=== PATIENT | male | born 1965 | race Caucasian/White ===

== ENCOUNTER 2017-02-20 08:28 | Inpatient (IN) | payer OTHER ==
[2017-02-20 10:23] VITALS: BMI 23.0
--- NOTE | 2017-02-20 12:01 | HP ---
CIWA Score - CIWA Score Nausea/Vomitin-Mild Nausea/No Vomiting Muscle Tremors: 4-Moderate,w/Arms Extend Anxiety: 4-Mod. Anxious/Guarded Agitation: 3 Paroxysmal Sweats: 3 Orientation: 0-Oriented Tacttile Disturbances: 1-Very Mild Itch/Numbness Auditory Disturbances: 0-None Visual Disturbances: 0-None Headache: 2-Mild CIWA-Ar Total Score: 18 Admission ROS BHS - HPI Chief Complaint: Withdrawal sx Allergies/Adverse Reactions: Allergies Allergy/AdvReac Type Severity Reaction Status Date / Time No Known Allergies Allergy Verified 02/20/17 10:23 History of Present Illness: 51 y/o man with a long hx. of alcoholism is admitted for detox.Pt. has been in previous detox,denies significant sobriety. Exam Limitations: No Limitations - Ebola screening Have you traveled outside of the country in the last 21 days: No Have you had contact with anyone from an Ebola affected area: No Have you been sick,other than usual withdrawal symptoms: No Do you have a fever: No - Review of Systems Constitutional: Diaphoresis EENT: reports: No Symptoms Reported Respiratory: reports: No Symptoms reported Cardiac: reports: No Symptoms Reported GI: reports: Nausea, Abdominal cramping : reports: No Symptoms Reported Musculoskeletal: reports: Joint Pain Integumentary: reports: Sweating Neuro: reports: Headache, Tingling, Tremors, Other (frequent blackouts) Endocrine: reports: No Symptoms Reported Hematology: reports: No Symptoms Reported Psychiatric: reports: No Sypmtoms Reported Other Systems: Reviewed and Negative Patient History - Patient Medical History Hx Anemia: No Hx Asthma: No Hx Chronic Obstructive Pulmonary Disease (COPD): No Hx Cancer: No Hx Cardiac Disorders: No Hx Congestive Heart Failure: No Hx Hypertension: No Hx Hypercholesterolemia: No Hx Seizures: No Hx Diabetes: No Hx Gastrointestinal Disorders: No Hx Liver Disease: Yes Hx Genitourinary Disorders: No Hx Sexually Transmitted Disorders: No Hx Renal Disease (ESRD): No Hx Thyroid Disease: No Hx Human Immunodeficiency Virus (HIV): No Hx Hepatitis C: Yes (non-compliant with F/U for tx.) Hx Depression: No Hx Suicide Attempt: No Hx Bipolar Disorder: No Hx Schizophrenia: No - Patient Surgical History Past Surgical History: Yes Hx Neurologic Surgery: No Hx Cataract Extraction: No Hx Cardiac Surgery: No Hx Lung Surgery: No Hx Breast Surgery: No Hx Breast Biopsy: No Hx Abdominal Surgery: No Hx Appendectomy: No Hx Cholecystectomy: No Hx Genitourinary Surgery: No Hx Section: Yes (fx, right hand) Hx Orthopedic Surgery: No Anesthesia Reaction: No - PPD History Previous Implant?: Yes Documented Results: Negative w/o proof Implanted On Prior [facility] Admission?: No PPD to be Administered?: Yes - Smoking Cessation Smoking history: Current some day smoker Have you smoked in the past 12 months: Yes Aproximately how many cigarettes per day: 2 Hx Chewing Tobacco Use: No Initiated information on smoking cessation: Yes 'Breaking Loose' booklet given: 02/20/17 - Substance & Tx. History Hx Alcohol Use: Yes Hx Substance Use: Yes Substance Use Type: Alcohol, Cocaine Hx Substance Use Treatment: Yes (Detox, last time in 2002 at [facility]) - Substances Abused Cocaine Route: Inhalation Frequency: Daily Amount used: $100 Age of first use: 13 Date of Last Use: 02/19/17 Alcohol-beer/rum Route: Oral Frequency: Daily Amount used: 3-6 pks./2 pts. Age of first use: 7 Date of Last Use: 02/19/17 Marijuana Route: Smoking Frequency: 1-2 times per week Amount used: $5-10 Age of first use: 11 Date of Last Use: 02/19/17 Family Disease History - Family Disease History Family Disease History: Diabetes: Mother (Alcoholic), Heart Disease: Grandparent (HTN,CVA), Other: Grandparent, Mother Admission Physical Exam S - Vital Signs Vital Signs: Vital Signs - 24 hr 02/20/17 10:19 Temperature 97.4 F L Pulse Rate 52 L Respiratory 18 Rate Blood Pressure 104/66 - Physical General Appearance: Yes: Sweating, Anxious HEENTM: Yes: Within Normal Limits Respiratory: Yes: Chest Non-Tender, Lungs Clear, Normal Breath Sounds Neck: Yes: Supple Breast: Yes: Breast Exam Deferred Cardiology: Yes: Regular Rhythm, Regular Rate, S1, S2 Abdominal: Yes: Normal Bowel Sounds, Non Tender, Soft Genitourinary: Yes: Within Normal Limits Back: Yes: Within Normal Limits Musculoskeletal: Yes: Within Normal Limits Extremities: Yes: Tremors Neurological: Yes: Fully Oriented, Alert Integumentary: Yes: Diaphoresis Lymphatic: Yes: Within Normal Limits - Diagnostic (1) Alcohol dependence with uncomplicated withdrawal Current Visit: Yes Status: Acute (2) Cocaine dependence, uncomplicated Current Visit: Yes Status: Acute Cleared for Admission [facility] - Detox or Rehab [facility] Level of Care: Medically Managed Detox Regimen/Protocol: Librium [facility] Breath Alcohol Content Breath Alcohol Content: 0 Urine Drug Screen - Results Drug Screen Negative: No Urine Drug Screen Results: THC-Marijuana, IRWIN-Cocaine, BZO-Benzodiazepines
[2017-02-20] MEDS ORDERED: ACETAMINOPHEN 325 MG TABLET (FP) PO PRN (12:09)
[2017-02-20] MEDS ORDERED: MAGNESIUM CITRATE 300 ML BOTTLE PO PRN (12:09)
[2017-02-20] MEDS ORDERED: IBUPROFEN 400 MG TABLET (FP) PO PRN (12:09)
[2017-02-20] MEDS ORDERED: LOPERAMIDE HCL 2 MG CAPSULE PO PRN (12:09)
[2017-02-20] MEDS ORDERED: MAGNESIUM HYDROX 2400MG/30ML ORAL SUSPENSION 30 ML CUP PO PRN (12:09)
[2017-02-20] MEDS ORDERED: chlordiazePOXIDE HCL 25 MG CAPSULE PO PRN (12:09)
[2017-02-20] MEDS ORDERED: MENTHOL/PHENOL 1 EACH UD MM PRN (12:09)
[2017-02-20] MEDS ORDERED: MAG HYDROX/AL HYDROX/SIMETH 30 ML UNIT-DOSE CUP PO PRN (12:09)
[2017-02-20] MEDS ORDERED: guaiFENesin/D-METHORPHAN HB 10 ML UNIT-DOSE CUPS PO PRN (12:09)
[2017-02-20] MEDS ORDERED: NICOTINE POLACRILEX 2 MG GUM BC PRN (12:09)
[2017-02-20] MEDS ORDERED: P-EPHED 60MG/TRIPROLIDI 2.5MG TABLET PO PRN (12:09)
[2017-02-20] MEDS ORDERED: chlordiazePOXIDE HCL 25 MG CAPSULE PO ONE (14:00)
[2017-02-20] MEDS: NICOTINE 7 MG/24 HOURS TOPICAL PATCH TD SCH (15:01)
[2017-02-20 17:18] LABS: URINE APPEARANCE CLEAR; URINE BILIRUBIN NEGATIVE (NEGATIVE); URINE BLOOD NEGATIVE (NEGATIVE); URINE COLOR YELLOW; URINE GLUCOSE (UA) NEGATIVE (NEGATIVE); URINE KETONE NEGATIVE (NEGATIVE); URINE LEUK ESTERASE NEGATIVE (NEGATIVE); URINE NITRITE NEGATIVE (NEGATIVE); URINE PROTEIN NEGATIVE (NEGATIVE); URINE UROBILINOGEN 2.0 E.U/dl E.U./dl (0.2-1.0)
[2017-02-20] MEDS: chlordiazePOXIDE HCL 25 MG CAPSULE PO SCH ×2 (17:32→22:28)
[2017-02-20] MEDS: THIAMINE HCL 100 MG TABLET (FP) PO SCH (22:28)
[2017-02-20] MEDS: diphenhydrAMINE HCL 50 MG CAPSULE PO PRN (22:29)
[2017-02-21] MEDS: chlordiazePOXIDE HCL 25 MG CAPSULE PO SCH ×4 (05:59→22:17)
[2017-02-21] MEDS: PRENATAL VITAMINS W/ FOLIC ACID TABLET (FP) PO SCH (10:05)
[2017-02-21] MEDS: NICOTINE 7 MG/24 HOURS TOPICAL PATCH TD SCH (10:05)
[2017-02-21 10:08] LABS: MCH 28.7 pg (25.7-33.7); MCHC 31.7 g/dl (32.0-35.9); MEAN CELL VOLUME 90.3 fl (80-96); MEAN PLT VOLUME 10.9 fl (7.5-11.1); PLATELET COUNT 168 K/MM3 (134-434); RDW 13.5 % (11.9-15.9); WHITE BLOOD COUNT 7.3 K/mm3 (4.0-10.0)
[2017-02-21 10:37] LABS: ALBUMIN 4.2 g/dl (3.4-5.0); ALK PHOS 94 U/L (45-117); ANION GAP 8 (8-16); BILIRUBIN,TOTAL 1.1 mg/dL (0.2-1.0); CALCIUM 9.2 mg/dL (8.5-10.1); CO2 32 mmol/L (21-32); COCKROFT - GAULT 85.5; GLUCOSE,RANDOM 173 mg/dL (74-106); SGOT/AST 42 U/L (15-37); SGPT/ALT 58 U/L (12-78); TOT PROT 7.8 g/dl (6.4-8.2)
[2017-02-21 14:14] LABS: HIV 1 & 2 AB NEGATIVE; HIV 1 AGp24 NEGATIVE
--- NOTE | 2017-02-21 15:47 | EKG ---
Test Reason : Blood Pressure : / mmHG Vent. Rate : 059 BPM Atrial Rate : 059 BPM P-R Int : 144 ms QRS Dur : 088 ms QT Int : 468 ms P-R-T Axes : 077 056 049 degrees QTc Int : 463 ms SINUS BRADYCARDIA POSSIBLE LEFT ATRIAL ENLARGEMENT BORDERLINE ECG NO PREVIOUS ECGS AVAILABLE Confirmed by NAOMI GUTIERREZ, AMANDA ([id number]) on 02/21/2017 3:47:34 PM Referred By: Ilir Jaeger Confirmed By:AMANDA SALGADO MD
--- NOTE | 2017-02-21 18:54 | PN ---
[facility] CIWA - CIWA Score Nausea/Vomitin-No Nausea/No Vomiting Muscle Tremors: 4-Moderate,w/Arms Extend Anxiety: 3 Agitation: 2 Paroxysmal Sweats: 2 Orientation: 0-Oriented Tacttile Disturbances: 0-None Auditory Disturbances: 2-Mild Harshness/Frighten Visual Disturbances: 3-Moderate Sensitivity Headache: 0-None Present CIWA-Ar Total Score: 16 S Progress Note (SOAP) Subjective: Fatigue, Sweating, Tremors. Objective: PT. A & O X 3. NO ACUTE DISTRESS. 02/21/17 18:53 Vital Signs Temperature 97.7 F 02/21/17 17:38 Pulse Rate 60 02/21/17 17:38 Respiratory Rate 18 02/21/17 17:38 Blood Pressure 106/63 02/21/17 17:38 O2 Sat by Pulse Oximetry (%) Laboratory Tests 02/20/17 02/21/17 02/21/17 15:00 06:00 06:00 WBC 7.3 RBC 4.62 Hgb 13.3 Hct 41.8 MCV 90.3 MCHC 31.7 L RDW 13.5 Plt Count 168 MPV 10.9 Sodium 142 Potassium 4.3 Chloride 102 Carbon Dioxide 32 Anion Gap 8 BUN 16 Creatinine 1.0 Creat Clearance w eGFR > 60 Random Glucose 173 H Calcium 9.2 Total Bilirubin 1.1 H AST 42 H ALT 58 Alkaline Phosphatase 94 Total Protein 7.8 Albumin 4.2 Urine Color Yellow Urine Appearance Clear Urine pH 6.0 Ur Specific Ralph 1.020 Urine Protein Negative Urine Glucose (UA) Negative Urine Ketones Negative Urine Blood Negative Urine Nitrite Negative Urine Bilirubin Negative Urine Urobilinogen 2.0 e.u/dl Ur Leukocyte Esterase Negative RPR Titer HIV 1&2 Antibody Screen HIV P24 Antigen 02/21/17 02/21/17 06:00 08:00 WBC RBC Hgb Hct MCV MCHC RDW Plt Count MPV Sodium Potassium Chloride Carbon Dioxide Anion Gap BUN Creatinine Creat Clearance w eGFR Random Glucose Calcium Total Bilirubin AST ALT Alkaline Phosphatase Total Protein Albumin Urine Color Urine Appearance Urine pH Ur Specific Ralph Urine Protein Urine Glucose (UA) Urine Ketones Urine Blood Urine Nitrite Urine Bilirubin Urine Urobilinogen Ur Leukocyte Esterase RPR Titer Nonreactive HIV 1&2 Antibody Screen Negative HIV P24 Antigen Negative LABS NOTED. Assessment: 02/21/17 18:53 WITHDRAWAL SYMPTOMS. Plan: CONTINUE DETOX. BGM [facility] TOMORROW AM FOR ELEVATED ADMISSION RANDOM GLUCOSE LEVEL.
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
[2017-02-21] MEDS: diphenhydrAMINE HCL 50 MG CAPSULE PO PRN (22:17)
[2017-02-21] MEDS: THIAMINE HCL 100 MG TABLET (FP) PO SCH (22:17)
[2017-02-22] MEDS: chlordiazePOXIDE HCL 25 MG CAPSULE PO SCH ×2 (05:45→10:42)
[2017-02-22] MEDS: NICOTINE 7 MG/24 HOURS TOPICAL PATCH TD SCH (10:41)
[2017-02-22] MEDS: PRENATAL VITAMINS W/ FOLIC ACID TABLET (FP) PO SCH (10:42)
--- NOTE | 2017-02-22 11:15 | PN ---
S CIWA - CIWA Score Nausea/Vomitin Muscle Tremors: 3 Anxiety: 3 Agitation: 3 Paroxysmal Sweats: 1-Minimal Palms Moist Orientation: 0-Oriented Tacttile Disturbances: 1-Very Mild Itch/Numbness Auditory Disturbances: 1-Very Mild Visual Disturbances: 1-Very Mild Sensitivity Headache: 2-Mild CIWA-Ar Total Score: 18 S Progress Note (SOAP) Subjective: ALERT,IRRITABLE,ANXIOUS,INTERRUPTED SLEEP,TREMOR,PAIN IN THE BODY Objective: 02/22/17 11:12 Vital Signs Temperature 97.7 F 02/22/17 10:45 Pulse Rate 55 L 02/22/17 10:45 Respiratory Rate 16 02/22/17 10:45 Blood Pressure 123/68 02/22/17 10:45 O2 Sat by Pulse Oximetry (%) EKG SINUS BRADYCARDIA 59/MIN NO CHEST PAIN,NO SOB,NO DIZZINESS Laboratory Last Values WBC 7.3 K/mm3 (4.0-10.0) 02/21/17 06:00 RBC 4.62 M/mm3 (4.00-5.60) 02/21/17 06:00 Hgb 13.3 GM/dL (11.7-16.9) 02/21/17 06:00 Hct 41.8 % (35.4-49) 02/21/17 06:00 MCV 90.3 fl (80-96) 02/21/17 06:00 MCHC 31.7 g/dl (32.0-35.9) L 02/21/17 06:00 RDW 13.5 % (11.9-15.9) 02/21/17 06:00 Plt Count 168 K/MM3 (134-434) 02/21/17 06:00 MPV 10.9 fl (7.5-11.1) 02/21/17 06:00 Sodium 142 mmol/L (136-145) 02/21/17 06:00 Potassium 4.3 mmol/L (3.5-5.1) 02/21/17 06:00 Chloride 102 mmol/L (98-107) 02/21/17 06:00 Carbon Dioxide 32 mmol/L (21-32) 02/21/17 06:00 Anion Gap 8 (8-16) 02/21/17 06:00 BUN 16 mg/dL (7-18) 02/21/17 06:00 Creatinine 1.0 mg/dL (0.7-1.3) 02/21/17 06:00 Creat Clearance w eGFR > 60 (>60) 02/21/17 06:00 POC Glucometer 124 UNITS (()) 02/22/17 06:15 Random Glucose 173 mg/dL (74-106) H 02/21/17 06:00 Calcium 9.2 mg/dL (8.5-10.1) 02/21/17 06:00 Total Bilirubin 1.1 mg/dL (0.2-1.0) H 02/21/17 06:00 AST 42 U/L (15-37) H 02/21/17 06:00 ALT 58 U/L (12-78) 02/21/17 06:00 Alkaline Phosphatase 94 U/L (45-117) 02/21/17 06:00 Total Protein 7.8 g/dl (6.4-8.2) 02/21/17 06:00 Albumin 4.2 g/dl (3.4-5.0) 02/21/17 06:00 Urine Color Yellow 02/20/17 15:00 Urine Appearance Clear 02/20/17 15:00 Urine pH 6.0 (5.0-8.0) 02/20/17 15:00 Ur Specific [place] 1.020 (1.005-1.025) 02/20/17 15:00 Urine Protein Negative (NEGATIVE) 02/20/17 15:00 Urine Glucose (UA) Negative (NEGATIVE) 02/20/17 15:00 Urine Ketones Negative (NEGATIVE) 02/20/17 15:00 Urine Blood Negative (NEGATIVE) 02/20/17 15:00 Urine Nitrite Negative (NEGATIVE) 02/20/17 15:00 Urine Bilirubin Negative (NEGATIVE) 02/20/17 15:00 Urine Urobilinogen 2.0 e.u/dl E.U./dl (0.2-1.0) 02/20/17 15:00 Ur Leukocyte Esterase Negative (NEGATIVE) 02/20/17 15:00 RPR Titer Nonreactive (NONREACTIVE) 02/21/17 06:00 HIV 1&2 Antibody Screen Negative 02/21/17 08:00 HIV P24 Antigen Negative 02/21/17 08:00 Assessment: 02/22/17 11:14 WITHDRAWAL SYMPTOM Plan: CONTINUE DETOX,BGM MONITORING
[2017-02-22] MEDS: chlordiazePOXIDE 5 MG CAPSULE PO SCH ×2 (17:34→22:08)
[2017-02-22] MEDS: THIAMINE HCL 100 MG TABLET (FP) PO SCH (22:07)
[2017-02-22] MEDS: diphenhydrAMINE HCL 50 MG CAPSULE PO PRN (22:07)
[2017-02-23] MEDS: chlordiazePOXIDE 5 MG CAPSULE PO SCH ×2 (05:32→10:12)
--- NOTE | 2017-02-23 10:10 | PN ---
B[facility] Progress Note (SOAP) Subjective: feeling much better very little sweats Objective: 02/23/17 10:10 Vital Signs Temperature 97.9 F 02/23/17 09:59 Pulse Rate 60 02/23/17 09:59 Respiratory Rate 18 02/23/17 09:59 Blood Pressure 131/60 02/23/17 09:59 O2 Sat by Pulse Oximetry (%) awake/alert ambulating no acute distress Assessment: 02/23/17 10:10 mild withdrawal sx Plan: continue detox increase fluids d/c in am
[2017-02-23] MEDS: NICOTINE 7 MG/24 HOURS TOPICAL PATCH TD SCH (10:12)
[2017-02-23] MEDS: PRENATAL VITAMINS W/ FOLIC ACID TABLET (FP) PO SCH (10:12)
[2017-02-23] MEDS: chlordiazePOXIDE HCL 10 MG CAPSULE PO SCH ×2 (17:30→22:11)
[2017-02-23] MEDS: diphenhydrAMINE HCL 50 MG CAPSULE PO PRN (22:11)
[2017-02-23] MEDS: THIAMINE HCL 100 MG TABLET (FP) PO SCH (22:11)
[2017-02-24] MEDS: chlordiazePOXIDE HCL 10 MG CAPSULE PO SCH ×2 (05:49→10:09)
--- NOTE | 2017-02-24 09:03 | DS ---
[facility] Detox Discharge Summary Admission Date: 02/20/17 Discharge Date: 02/24/17 - History Present History: Alcohol Dependence, Cocaine Dependence - Physical Exam Results Vital Signs: Vital Signs Temperature 96.8 F L 02/24/17 06:00 Pulse Rate 58 L 02/24/17 06:00 Respiratory Rate 18 02/24/17 06:00 Blood Pressure 127/60 02/24/17 06:00 O2 Sat by Pulse Oximetry (%) - Treatment Hospital Course: Detox Protocol Followed, Detoxed Safely, Responded well, Discharged Condition Good, Rehab Referral Accepted - Medication Discharge Medications: Ambulatory Orders NK [No Known Home Medication] 02/20/17 - Diagnosis (1) Alcohol dependence with uncomplicated withdrawal Current Visit: Yes Status: Chronic (2) Cocaine dependence, uncomplicated Current Visit: Yes Status: Chronic - AMA Did Patient Leave Against Medical Advice: No
[2017-02-24 09:48] VITALS: BP 100/61; PULSE 70; TEMP 98.2
[2017-02-24] MEDS: PRENATAL VITAMINS W/ FOLIC ACID TABLET (FP) PO SCH (10:09)
[2017-02-24] MEDS: NICOTINE 7 MG/24 HOURS TOPICAL PATCH TD SCH (10:09)
== END 2017-02-24 12:12 | disposition other institution (70) | DRG 774 ==
LOC: YASAS 08:28 → Y3N 13:15 → Y6N 02-21 21:18
PROVIDERS: ADMIT Internal Medicine; ATTEND Internal Medicine
PROC: HZ2ZZZZ Detoxification Services for Substance Abuse Treatment (ICD-10-PCS; principal; 2017-02-20)
DX: F10.230 Alcohol dependence with withdrawal, uncomplicated (principal); F14.20 Cocaine dependence, uncomplicated; R00.1 Bradycardia, unspecified; B18.2 Chronic viral hepatitis C; Z91.14 Patient's other noncompliance with medication regimen; Z72.0 Tobacco use
CPT/HCPCS: 36415; 80053; 81003; 85027; 86593; 87389; 93005; 93010

== ENCOUNTER 2017-02-24 12:26 | Inpatient (IN) | payer OTHER ==
[2017-02-24 12:40] VITALS: PULSE 60
[2017-02-24] MEDS ORDERED: MAGNESIUM CITRATE 300 ML BOTTLE PO PRN (15:57)
[2017-02-24] MEDS ORDERED: MAG HYDROX/AL HYDROX/SIMETH 30 ML UNIT-DOSE CUP PO PRN (15:57)
[2017-02-24] MEDS ORDERED: IBUPROFEN 400 MG TABLET (FP) PO PRN (15:57)
[2017-02-24] MEDS ORDERED: hydrOXYzine PAMOATE 50 MG CAPSULE (FP) PO PRN (15:57)
[2017-02-24] MEDS ORDERED: guaiFENesin/D-METHORPHAN HB 10 ML UNIT-DOSE CUPS PO PRN (15:57)
[2017-02-24] MEDS ORDERED: ACETAMINOPHEN 325 MG TABLET (FP) PO PRN (15:57)
[2017-02-24] MEDS ORDERED: MAGNESIUM HYDROX 2400MG/30ML ORAL SUSPENSION 30 ML CUP PO PRN (15:57)
[2017-02-24] MEDS ORDERED: MENTHOL/PHENOL 1 EACH UD MM PRN (15:57)
[2017-02-24] MEDS ORDERED: LOPERAMIDE HCL 2 MG CAPSULE PO PRN (15:57)
[2017-02-24] MEDS ORDERED: P-EPHED 60MG/TRIPROLIDI 2.5MG TABLET PO PRN (15:57)
[2017-02-24] MEDS ORDERED: diphenhydrAMINE HCL 50 MG CAPSULE PO PRN (15:57)
--- NOTE | 2017-02-24 16:24 | HP ---
LACIE GUTIERREZ Rehab Assess/Revision - Admission History Admitted to Rehab from: [facility] Date of Admission to Rehab: 02/24/17 - Vital signs Vital Signs: Vital Signs Period Temp Pulse Resp BP Sys/Curran Pulse Ox Last 24 Hr 98.2 F 60 18 113/62 - Findings Detox History & Physical reviewed: Yes Concur with findings: Yes Comments/Additional Findings: transferred from detox to rehab admission as per protocol
[2017-02-24] MEDS ORDERED: THIAMINE HCL 100 MG TABLET (FP) PO SCH (22:00)
[2017-02-25 06:49] VITALS: BP 113/65; TEMP 98.3
[2017-02-25] MEDS ORDERED: PRENATAL VITAMINS W/ FOLIC ACID TABLET (FP) PO SCH (10:00)
--- NOTE | 2017-02-25 12:22 | PN ---
S Progress Note Note: Patient signed out AMA today, prior to be seen for admission interview. Patient is stable , please see medical staff notes.
== END 2017-02-25 11:35 | disposition left against medical advice (07) | DRG 770 ==
LOC: YASAS 12:26 → Y5N 12:27
PROVIDERS: ADMIT Psychiatry & Neurology Psychiatry; ATTEND Psychiatry & Neurology Psychiatry
PROC: HZ42ZZZ Group Counseling for Substance Abuse Treatment, Cognitive-Behavioral (ICD-10-PCS; principal; 2017-02-24)
DX: F10.20 Alcohol dependence, uncomplicated (principal); F14.20 Cocaine dependence, uncomplicated; Z72.0 Tobacco use; B18.2 Chronic viral hepatitis C; Z91.19 Patient's noncompliance with other medical treatment and regimen; Z59.0 Homelessness

== ENCOUNTER 2017-11-17 09:25 | Inpatient (IN) | payer OTHER ==
[2017-11-17 11:19] VITALS: BMI 22.1
--- NOTE | 2017-11-17 12:25 | HP ---
CIWA Score - CIWA Score Nausea/Vomitin Muscle Tremors: 3 Anxiety: 3 Agitation: 3 Paroxysmal Sweats: 2 Orientation: 0-Oriented Tacttile Disturbances: 2-Mild Itch/Numbness/Burn Auditory Disturbances: 2-Mild Harshness/Frighten Visual Disturbances: 1-Very Mild Sensitivity Headache: 2-Mild CIWA-Ar Total Score: 21 Admission ROS BHS - HPI Chief Complaint: I NEED HELP TO STOP DRINKING ALCOHOL AND COCAINE Allergies/Adverse Reactions: Allergies Allergy/AdvReac Type Severity Reaction Status Date / Time Penicillins Allergy Difficulty Verified 11/17/17 11:51 Breathing History of Present Illness: THIS 52 YEARS OLD MALE WITH ALCOHOL AND COCAINE DEPENDENCE,SEEKING DETOX, WITHDRAWAL SYMPTOM,LAST DETOX [facility] 11/01 [place] ALCOHOL RELATED HEPATITIS C TREATED ANXIETY,DEPRESSION,INSOMNIA LONGEST PERIOD OF SOBRIETY 2 YEARS Exam Limitations: No Limitations - Ebola screening Have you traveled outside of the country in the last 21 days: No (N) Have you had contact with anyone from an Ebola affected area: No Have you been sick,other than usual withdrawal symptoms: No Do you have a fever: No - Review of Systems Constitutional: Loss of Appetite, Malaise, Night Sweats, Changes in sleep, Weakness, Unintentional Wgt. Loss EENT: reports: Nose Congestion Respiratory: reports: No Symptoms reported Cardiac: reports: No Symptoms Reported GI: reports: Diarrhea, Nausea, Vomiting, Abdominal cramping : reports: No Symptoms Reported Musculoskeletal: reports: Back Pain, Muscle Pain Integumentary: reports: Dryness Neuro: reports: Headache, Tremors Endocrine: reports: No Symptoms Reported Hematology: reports: No Symptoms Reported Psychiatric: reports: Anxious (INSOMNIA), Depressed Patient History - Patient Medical History Hx Anemia: No Hx Asthma: No Hx Chronic Obstructive Pulmonary Disease (COPD): No Hx Cancer: No Hx Cardiac Disorders: No Hx Congestive Heart Failure: No Hx Hypertension: No Hx Hypercholesterolemia: No Hx Seizures: No Hx Diabetes: No Hx Gastrointestinal Disorders: No Hx Liver Disease: Yes Hx Genitourinary Disorders: No Hx Sexually Transmitted Disorders: No Hx Renal Disease (ESRD): No Hx Thyroid Disease: No Hx Human Immunodeficiency Virus (HIV): No Hx Hepatitis C: Yes (TREATED) Hx Depression: Yes (INSOMNIA,ANXIETY) Hx Suicide Attempt: No Hx Bipolar Disorder: No Hx Schizophrenia: No Other Medical History: NO SUICIDAL,NO HOMICIDAL - Patient Surgical History Past Surgical History: Yes Hx Neurologic Surgery: No Hx Cataract Extraction: No Hx Cardiac Surgery: No Hx Lung Surgery: No Hx Breast Surgery: No Hx Breast Biopsy: No Hx Abdominal Surgery: No Hx Appendectomy: No Hx Cholecystectomy: No Hx Genitourinary Surgery: No Hx Section: No Hx Orthopedic Surgery: Yes (Fractured & surgery on right hand IN 2016) Anesthesia Reaction: No - PPD History Previous Implant?: Yes Documented Results: Negative w/proof Implanted On Prior [facility] Admission?: Yes Date: 02/22/17 Results: 0 mm PPD to be Administered?: No - Smoking Cessation Smoking history: Current every day smoker Have you smoked in the past 12 months: Yes Aproximately how many cigarettes per day: 20 Cigars Per Day: 0 Hx Chewing Tobacco Use: No Initiated information on smoking cessation: Yes 'Breaking Loose' booklet given: 11/17/17 - Substance & Tx. History Hx Alcohol Use: Yes Hx Substance Use: Yes Substance Use Type: Alcohol, Cocaine Hx Substance Use Treatment: Yes ([facility] 11/01) - Substances Abused Alcohol Route: Oral Frequency: Daily Amount used: 2-3 pints whiskey Age of first use: 7 Date of Last Use: 11/16/17 Cocaine Route: Smoking Frequency: Daily Amount used: 10-20 bags Age of first use: 13 Date of Last Use: 11/15/17 Family Disease History - Family Disease History Family Disease History: Diabetes: Mother (Alcoholic,), Heart Disease: Grandparent (HTN,CVA), Other: Grandparent, Mother Admission Physical Exam S - Vital Signs Vital Signs: Vital Signs - 24 hr 11/17/17 11:18 Temperature 97.5 F L Pulse Rate 64 Respiratory 20 Rate Blood Pressure 111/61 - Physical General Appearance: Yes: Moderate Distress, Tremorous, Irritable, Sweating, Anxious HEENTM: Yes: Within Normal Limits, KENDRA, Pharynx Normal Respiratory: Yes: Lungs Clear, Normal Breath Sounds, No Respiratory Distress Neck: Yes: Within Normal Limits, Supple, Trachea in good position Breast: Yes: Within Normal Limits Cardiology: Yes: Within Normal Limits, Regular Rhythm, Regular Rate, S1, S2 Abdominal: Yes: Within Normal Limits, Normal Bowel Sounds, Non Tender, Flat, Soft Genitourinary: Yes: Within Normal Limits Back: Yes: Muscle Spasm Musculoskeletal: Yes: Back pain, Muscle Pain Extremities: Yes: Normal Range of Motion, Tremors Neurological: 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: 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 intact, Alert, Motor Strength 5/5 Integumentary: Yes: Dry Lymphatic: Yes: Within Normal Limits - Diagnostic (1) Alcohol dependence with uncomplicated withdrawal Current Visit: Yes Status: Acute (2) Cocaine dependence, uncomplicated Current Visit: Yes Status: Acute (3) Weight loss Current Visit: Yes Status: Acute (4) Insomnia secondary to depression with anxiety Current Visit: Yes Status: Acute (5) Nicotine dependence Current Visit: Yes Status: Acute Cleared for Admission [facility] - Detox or Rehab [facility] Level of Care: Medically Managed Detox Regimen/Protocol: Librium [facility] Breath Alcohol Content Breath Alcohol Content: 0 Urine Drug Screen - Results Drug Screen Negative: No Urine Drug Screen Results: IRWIN-Cocaine, BZO-Benzodiazepines
[2017-11-17] MEDS ORDERED: MAGNESIUM HYDROX 2400MG/30ML ORAL SUSPENSION 30 ML CUP PO PRN (12:36)
[2017-11-17] MEDS ORDERED: P-EPHED 60MG/TRIPROLIDI 2.5MG TABLET PO PRN (12:36)
[2017-11-17] MEDS ORDERED: MAG HYDROX/AL HYDROX/SIMETH 30 ML UNIT-DOSE CUP PO PRN (12:36)
[2017-11-17] MEDS ORDERED: ACETAMINOPHEN 325 MG TABLET (FP) PO PRN (12:36)
[2017-11-17] MEDS ORDERED: guaiFENesin/D-METHORPHAN HB 10 ML UNIT-DOSE CUPS PO PRN (12:36)
[2017-11-17] MEDS ORDERED: MAGNESIUM CITRATE 300 ML BOTTLE PO PRN (12:36)
[2017-11-17] MEDS ORDERED: LOPERAMIDE HCL 2 MG CAPSULE PO PRN (12:36)
[2017-11-17] MEDS ORDERED: hydrOXYzine PAMOATE 50 MG CAPSULE (FP) PO PRN (12:36)
[2017-11-17] MEDS ORDERED: IBUPROFEN 400 MG TABLET (FP) PO PRN (12:36)
[2017-11-17] MEDS ORDERED: MENTHOL/PHENOL 1 EACH UD MM PRN (12:36)
[2017-11-17] MEDS ORDERED: chlordiazePOXIDE HCL 25 MG CAPSULE PO PRN (12:36)
[2017-11-17] MEDS ORDERED: chlordiazePOXIDE HCL 25 MG CAPSULE PO ONE (13:45)
--- NOTE | 2017-11-17 15:06 | CONSULT ---
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 Substance Abuse History: Confirmed by patient in this interview.Smoking history : Current every day smoker. Have you smoked in the past 12 months: Yes. Aproximately how many cigarettes per day: 20. Cigars Per Day: 0. Hx Chewing Tobacco Use: No. Initiated information on smoking cessation: Yes. 'Breaking Loose' booklet given: 11/17/17. - Substance & Tx. History. Hx Alcohol Use: Yes. Hx Substance Use: Yes. Substance Use Type: Alcohol, Cocaine. Hx Substance Use Treatment: Yes ([facility] 11/01). - Substances Abused. Alcohol. Route: Oral. Frequency: Daily. Amount used: 2-3 pints whiskey. Age of first use: 7. Date of Last Use: 11/16/17. Cocaine. Route: Smoking. Frequency: Daily. Amount used: 10-20 bags. Age of first use: 13. Date of Last Use: 11/15/17 Medical History: Hepatitis C (treated as per self-report) and a history of orthosurgery (fracture of right hand) in 2016. Psychiatric History: Patient denies. Physical/Sexual Abuse/Trauma History: Patient denies. Additional Comment: Urine Drug Screen Results: IRWIN-Cocaine, BZO- Benzodiazepines.Noted. Mental Status Exam - Mental Status Exam Alert and Oriented to: Time, Place, Person Cognitive Function: Good Patient Appearance: Well Groomed Mood: Hopeful, Euthymic Affect: Appropriate, Normal Range Patient Behavior: Appropriate, Cooperative Speech Pattern: Clear, Appropriate Voice Loudness: Normal Thought Process: Intact, Goal Oriented Thought Disorder: Not Present Hallucinations: Denies Suicidal Ideation: Denies Homicidal Ideation: Denies Insight/Judgement: Poor Sleep: Poorly, Difficulty falling asleep Appetite: Good Muscle strength/Tone: Normal Gait/Station: Normal Psychiatric Findings - Problem List ([place] 1, 2,3) (1) Alcohol dependence with uncomplicated withdrawal Current Visit: Yes Status: Acute (2) Cocaine dependence, uncomplicated Current Visit: Yes Status: Acute (3) Nicotine dependence Current Visit: Yes Status: Acute (4) Insomnia Current Visit: Yes Status: Acute - Initial Treatment Plan Initial Treatment Plan: Psychoeducation.Sleep hygiene.Detoxification in progress.Ambien 10 mg po hs prn.Discussed with patient : side effects/ benefits.Made aware of risk of parasomnias.Mr Perez agrees with this careplan.Observation.
--- NOTE | 2017-11-17 15:50 | EKG ---
Test Reason : Blood Pressure : / mmHG Vent. Rate : 049 BPM Atrial Rate : 049 BPM P-R Int : 120 ms QRS Dur : 084 ms QT Int : 494 ms P-R-T Axes : -22 067 062 degrees QTc Int : 446 ms SINUS BRADYCARDIA OTHERWISE NORMAL ECG WHEN COMPARED WITH ECG OF 20-FEB-2017 14:28, NO SIGNIFICANT CHANGE WAS FOUND Confirmed by MD Killian Edward ([id number]) on 11/17/2017 3:49:51 PM Referred By: Confirmed By:Andrew Killian MD
[2017-11-17] MEDS: chlordiazePOXIDE HCL 25 MG CAPSULE PO SCH ×2 (17:45→22:03)
[2017-11-17 18:11] LABS: URINE APPEARANCE CLEAR; URINE BILIRUBIN NEGATIVE (NEGATIVE); URINE BLOOD NEGATIVE (NEGATIVE); URINE COLOR DKYELLOW; URINE GLUCOSE (UA) NEGATIVE (NEGATIVE); URINE KETONE NEGATIVE (NEGATIVE); URINE LEUK ESTERASE TRACE (NEGATIVE); URINE NITRITE NEGATIVE (NEGATIVE); URINE PROTEIN NEGATIVE (NEGATIVE)
[2017-11-17 19:45] LABS: URINE MUCUS RARE
[2017-11-17] MEDS: THIAMINE HCL 100 MG TABLET (FP) PO SCH (22:03)
[2017-11-17] MEDS: ZOLPIDEM TARTRATE 10 MG TABLET (PARK CARE ONLY) PO PRN (22:03)
[2017-11-18] MEDS: chlordiazePOXIDE HCL 25 MG CAPSULE PO SCH ×4 (05:13→22:11)
[2017-11-18 10:11] LABS: HEMATOCRIT 37.9 % (35.4-49); HEMOGLOBIN 12.6 GM/dL (11.7-16.9); MCHC 33.1 g/dl (32.0-35.9); MEAN CELL VOLUME 90.4 fl (80-96); MEAN PLT VOLUME 10.4 fl (7.5-11.1); PLATELET COUNT 188 K/MM3 (134-434); RBC 4.19 M/mm3 (4.00-5.60); RDW 13.3 % (11.9-15.9); WHITE BLOOD COUNT 6.2 K/mm3 (4.0-10.0)
[2017-11-18 10:20] LABS: CHLORIDE 105 mmol/L (98-107); POTASSIUM 3.9 mmol/L (3.5-5.1); SODIUM 141 mmol/L (136-145)
[2017-11-18] MEDS: PRENATAL VITAMINS W/ FOLIC ACID TABLET (FP) PO SCH (10:23)
[2017-11-18 10:35] LABS: ALBUMIN 3.9 g/dl (3.4-5.0); ALK PHOS 81 U/L (45-117); ANION GAP 8 (8-16); BILIRUBIN,TOTAL 1.5 mg/dL (0.2-1.0); BLOOD UREA NITROGEN 15 mg/dL (7-18); CALCIUM 8.2 mg/dL (8.5-10.1); CO2 28 mmol/L (21-32); GLUCOSE,RANDOM 106 mg/dL (74-106); SGOT/AST 11 U/L (15-37); SGPT/ALT 14 U/L (12-78)
--- NOTE | 2017-11-18 12:09 | PN ---
[facility] CIWA - CIWA Score Nausea/Vomitin-No Nausea/No Vomiting Muscle Tremors: 4-Moderate,w/Arms Extend Anxiety: 4-Mod. Anxious/Guarded Agitation: 4-Moderately Restless Paroxysmal Sweats: 1-Minimal Palms Moist Orientation: 0-Oriented Tacttile Disturbances: 3-Moderate Itch/Numb/Burn Auditory Disturbances: 0-None Visual Disturbances: 0-None Headache: 0-None Present CIWA-Ar Total Score: 16 S Progress Note (SOAP) Subjective: ALERT O X 3. OOB AMBULATING WITH STEADY GAIT. Objective: 11/18/17 12:09 Vital Signs Temperature 97.1 F L 11/18/17 09:03 Pulse Rate 115 H 11/18/17 09:03 Respiratory Rate 18 11/18/17 09:03 Blood Pressure 95/59 11/18/17 09:03 O2 Sat by Pulse Oximetry (%) Laboratory Last Values WBC 6.2 K/mm3 (4.0-10.0) 11/18/17 06:00 RBC 4.19 M/mm3 (4.00-5.60) 11/18/17 06:00 Hgb 12.6 GM/dL (11.7-16.9) 11/18/17 06:00 Hct 37.9 % (35.4-49) 11/18/17 06:00 MCV 90.4 fl (80-96) 11/18/17 06:00 MCH 30.0 pg (25.7-33.7) 11/18/17 06:00 MCHC 33.1 g/dl (32.0-35.9) 11/18/17 06:00 RDW 13.3 % (11.9-15.9) 11/18/17 06:00 Plt Count 188 K/MM3 (134-434) 11/18/17 06:00 MPV 10.4 fl (7.5-11.1) 11/18/17 06:00 Sodium 141 mmol/L (136-145) 11/18/17 06:00 Potassium 3.9 mmol/L (3.5-5.1) 11/18/17 06:00 Chloride 105 mmol/L (98-107) 11/18/17 06:00 Carbon Dioxide 28 mmol/L (21-32) 11/18/17 06:00 Anion Gap 8 (8-16) 11/18/17 06:00 BUN 15 mg/dL (7-18) 11/18/17 06:00 Creatinine 1.0 mg/dL (0.7-1.3) 11/18/17 06:00 Creat Clearance w eGFR > 60 (>60) 11/18/17 06:00 Random Glucose 106 mg/dL (74-106) D 11/18/17 06:00 Calcium 8.2 mg/dL (8.5-10.1) L 11/18/17 06:00 Total Bilirubin 1.5 mg/dL (0.2-1.0) H D 11/18/17 06:00 AST 11 U/L (15-37) L D 11/18/17 06:00 ALT 14 U/L (12-78) D 11/18/17 06:00 Alkaline Phosphatase 81 U/L (45-117) 11/18/17 06:00 Total Protein 7.0 g/dl (6.4-8.2) 11/18/17 06:00 Albumin 3.9 g/dl (3.4-5.0) 11/18/17 06:00 Urine Color Dkyellow 11/17/17 14:00 Urine Appearance Clear 11/17/17 14:00 Urine pH 6.0 (5.0-8.0) 11/17/17 14:00 Ur Specific [place] 1.025 (1.001-1.035) 11/17/17 14:00 Urine Protein Negative (NEGATIVE) 11/17/17 14:00 Urine Glucose (UA) Negative (NEGATIVE) 11/17/17 14:00 Urine Ketones Negative (NEGATIVE) 11/17/17 14:00 Urine Blood Negative (NEGATIVE) 11/17/17 14:00 Urine Nitrite Negative (NEGATIVE) 11/17/17 14:00 Urine Bilirubin Negative (NEGATIVE) 11/17/17 14:00 Urine Urobilinogen 2.0 mg/dL (0.2-1.0) 11/17/17 14:00 Ur Leukocyte Esterase Trace (NEGATIVE) 11/17/17 14:00 Urine WBC (Auto) 20 /hpf (3-5) 11/17/17 14:00 Urine RBC (Auto) 3 /hpf (0-3) 11/17/17 14:00 Urine Mucus Rare 11/17/17 14:00 RPR Titer Nonreactive (NONREACTIVE) 11/18/17 06:00 LABS NOTED. Assessment: 11/18/17 12:09 WITHDRAWAL SX Plan: CONTINUE DETOX REPEAT UA TODAY
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
[2017-11-18] MEDS: THIAMINE HCL 100 MG TABLET (FP) PO SCH (22:11)
[2017-11-18] MEDS: ZOLPIDEM TARTRATE 10 MG TABLET (PARK CARE ONLY) PO PRN (22:11)
[2017-11-19] MEDS: chlordiazePOXIDE HCL 25 MG CAPSULE PO SCH ×2 (05:06→10:51)
[2017-11-19] MEDS: PRENATAL VITAMINS W/ FOLIC ACID TABLET (FP) PO SCH (10:51)
--- NOTE | 2017-11-19 11:29 | PN ---
[facility] CIWA - CIWA Score Nausea/Vomitin-No Nausea/No Vomiting Muscle Tremors: 3 Anxiety: 4-Mod. Anxious/Guarded Agitation: 3 Paroxysmal Sweats: 1-Minimal Palms Moist Orientation: 0-Oriented Tacttile Disturbances: 3-Moderate Itch/Numb/Burn Auditory Disturbances: 0-None Visual Disturbances: 0-None Headache: 0-None Present CIWA-Ar Total Score: 14 [facility] Progress Note (SOAP) Subjective: ANXIETY,SLIGHT TREMORS,FATIGUE. Objective: 11/19/17 11:56 Vital Signs Temperature 99.3 F 11/19/17 09:25 Pulse Rate 101 H 11/19/17 09:25 Respiratory Rate 20 11/19/17 09:25 Blood Pressure 119/81 11/19/17 09:25 O2 Sat by Pulse Oximetry (%) Laboratory Last Values WBC 6.2 K/mm3 (4.0-10.0) 11/18/17 06:00 RBC 4.19 M/mm3 (4.00-5.60) 11/18/17 06:00 Hgb 12.6 GM/dL (11.7-16.9) 11/18/17 06:00 Hct 37.9 % (35.4-49) 11/18/17 06:00 MCV 90.4 fl (80-96) 11/18/17 06:00 MCH 30.0 pg (25.7-33.7) 11/18/17 06:00 MCHC 33.1 g/dl (32.0-35.9) 11/18/17 06:00 RDW 13.3 % (11.9-15.9) 11/18/17 06:00 Plt Count 188 K/MM3 (134-434) 11/18/17 06:00 MPV 10.4 fl (7.5-11.1) 11/18/17 06:00 Sodium 141 mmol/L (136-145) 11/18/17 06:00 Potassium 3.9 mmol/L (3.5-5.1) 11/18/17 06:00 Chloride 105 mmol/L (98-107) 11/18/17 06:00 Carbon Dioxide 28 mmol/L (21-32) 11/18/17 06:00 Anion Gap 8 (8-16) 11/18/17 06:00 BUN 15 mg/dL (7-18) 11/18/17 06:00 Creatinine 1.0 mg/dL (0.7-1.3) 11/18/17 06:00 Creat Clearance w eGFR > 60 (>60) 11/18/17 06:00 Random Glucose 106 mg/dL (74-106) D 11/18/17 06:00 Calcium 8.2 mg/dL (8.5-10.1) L 11/18/17 06:00 Total Bilirubin 1.5 mg/dL (0.2-1.0) H D 11/18/17 06:00 AST 11 U/L (15-37) L D 11/18/17 06:00 ALT 14 U/L (12-78) D 11/18/17 06:00 Alkaline Phosphatase 81 U/L (45-117) 11/18/17 06:00 Total Protein 7.0 g/dl (6.4-8.2) 11/18/17 06:00 Albumin 3.9 g/dl (3.4-5.0) 11/18/17 06:00 Urine Color Dkyellow 11/17/17 14:00 Urine Appearance Clear 11/17/17 14:00 Urine pH 6.0 (5.0-8.0) 11/17/17 14:00 Ur Specific [place] 1.025 (1.001-1.035) 11/17/17 14:00 Urine Protein Negative (NEGATIVE) 11/17/17 14:00 Urine Glucose (UA) Negative (NEGATIVE) 11/17/17 14:00 Urine Ketones Negative (NEGATIVE) 11/17/17 14:00 Urine Blood Negative (NEGATIVE) 11/17/17 14:00 Urine Nitrite Negative (NEGATIVE) 11/17/17 14:00 Urine Bilirubin Negative (NEGATIVE) 11/17/17 14:00 Urine Urobilinogen 2.0 mg/dL (0.2-1.0) 11/17/17 14:00 Ur Leukocyte Esterase Trace (NEGATIVE) 11/17/17 14:00 Urine WBC (Auto) 20 /hpf (3-5) 11/17/17 14:00 Urine RBC (Auto) 3 /hpf (0-3) 11/17/17 14:00 Urine Mucus Rare 11/17/17 14:00 RPR Titer Nonreactive (NONREACTIVE) 11/18/17 06:00 LABS NOTED. Assessment: 11/19/17 11:56 WITHDRAWAL SX R/O UTI Plan: CONTINUE DETOX REPEAT UA PENDING COLLECTION
--- NOTE | 2017-11-19 11:47 | PN ---
[facility] Progress Note (SOAP) Subjective: ANXIETY,SWEATS,FATIGUE. Objective: 11/19/17 11:43 Vital Signs Temperature 99.3 F 11/19/17 09:25 Pulse Rate 101 H 11/19/17 09:25 Respiratory Rate 20 11/19/17 09:25 Blood Pressure 119/81 11/19/17 09:25 O2 Sat by Pulse Oximetry (%) Laboratory Last Values WBC 6.2 K/mm3 (4.0-10.0) 11/18/17 06:00 RBC 4.19 M/mm3 (4.00-5.60) 11/18/17 06:00 Hgb 12.6 GM/dL (11.7-16.9) 11/18/17 06:00 Hct 37.9 % (35.4-49) 11/18/17 06:00 MCV 90.4 fl (80-96) 11/18/17 06:00 MCH 30.0 pg (25.7-33.7) 11/18/17 06:00 MCHC 33.1 g/dl (32.0-35.9) 11/18/17 06:00 RDW 13.3 % (11.9-15.9) 11/18/17 06:00 Plt Count 188 K/MM3 (134-434) 11/18/17 06:00 MPV 10.4 fl (7.5-11.1) 11/18/17 06:00 Sodium 141 mmol/L (136-145) 11/18/17 06:00 Potassium 3.9 mmol/L (3.5-5.1) 11/18/17 06:00 Chloride 105 mmol/L (98-107) 11/18/17 06:00 Carbon Dioxide 28 mmol/L (21-32) 11/18/17 06:00 Anion Gap 8 (8-16) 11/18/17 06:00 BUN 15 mg/dL (7-18) 11/18/17 06:00 Creatinine 1.0 mg/dL (0.7-1.3) 11/18/17 06:00 Creat Clearance w eGFR > 60 (>60) 11/18/17 06:00 Random Glucose 106 mg/dL (74-106) D 11/18/17 06:00 Calcium 8.2 mg/dL (8.5-10.1) L 11/18/17 06:00 Total Bilirubin 1.5 mg/dL (0.2-1.0) H D 11/18/17 06:00 AST 11 U/L (15-37) L D 11/18/17 06:00 ALT 14 U/L (12-78) D 11/18/17 06:00 Alkaline Phosphatase 81 U/L (45-117) 11/18/17 06:00 Total Protein 7.0 g/dl (6.4-8.2) 11/18/17 06:00 Albumin 3.9 g/dl (3.4-5.0) 11/18/17 06:00 Urine Color Dkyellow 11/17/17 14:00 Urine Appearance Clear 11/17/17 14:00 Urine pH 6.0 (5.0-8.0) 11/17/17 14:00 Ur Specific [place] 1.025 (1.001-1.035) 11/17/17 14:00 Urine Protein Negative (NEGATIVE) 11/17/17 14:00 Urine Glucose (UA) Negative (NEGATIVE) 11/17/17 14:00 Urine Ketones Negative (NEGATIVE) 11/17/17 14:00 Urine Blood Negative (NEGATIVE) 11/17/17 14:00 Urine Nitrite Negative (NEGATIVE) 11/17/17 14:00 Urine Bilirubin Negative (NEGATIVE) 11/17/17 14:00 Urine Urobilinogen 2.0 mg/dL (0.2-1.0) 11/17/17 14:00 Ur Leukocyte Esterase Trace (NEGATIVE) 11/17/17 14:00 Urine WBC (Auto) 20 /hpf (3-5) 11/17/17 14:00 Urine RBC (Auto) 3 /hpf (0-3) 11/17/17 14:00 Urine Mucus Rare 11/17/17 14:00 RPR Titer Nonreactive (NONREACTIVE) 11/18/17 06:00 Assessment: 11/19/17 11:43 WITHDRAWAL SX Plan: CONTINUE DETOX
[2017-11-19 13:28] VITALS: BP 123/82; PULSE 78; TEMP 98.2
--- NOTE | 2017-11-19 15:56 | DS ---
[facility] Detox Discharge Summary Admission Date: 11/17/17 Discharge Date: 11/19/17 - History Present History: Alcohol Dependence, Cocaine Dependence Additional Comments: PT SIGNED OUT AMA STATING "I JUST WANNA LEAVE". Pertinent Past History: SEE DX BELOW - Physical Exam Results Vital Signs: Vital Signs Temperature 98.2 F 11/19/17 13:27 Pulse Rate 78 11/19/17 13:27 Respiratory Rate 18 11/19/17 13:27 Blood Pressure 123/82 11/19/17 13:27 O2 Sat by Pulse Oximetry (%) Pertinent Admission Physical Exam Findings: WITHDRAWAL SX Laboratory Last Values WBC 6.2 K/mm3 (4.0-10.0) 11/18/17 06:00 RBC 4.19 M/mm3 (4.00-5.60) 11/18/17 06:00 Hgb 12.6 GM/dL (11.7-16.9) 11/18/17 06:00 Hct 37.9 % (35.4-49) 11/18/17 06:00 MCV 90.4 fl (80-96) 11/18/17 06:00 MCH 30.0 pg (25.7-33.7) 11/18/17 06:00 MCHC 33.1 g/dl (32.0-35.9) 11/18/17 06:00 RDW 13.3 % (11.9-15.9) 11/18/17 06:00 Plt Count 188 K/MM3 (134-434) 11/18/17 06:00 MPV 10.4 fl (7.5-11.1) 11/18/17 06:00 Sodium 141 mmol/L (136-145) 11/18/17 06:00 Potassium 3.9 mmol/L (3.5-5.1) 11/18/17 06:00 Chloride 105 mmol/L (98-107) 11/18/17 06:00 Carbon Dioxide 28 mmol/L (21-32) 11/18/17 06:00 Anion Gap 8 (8-16) 11/18/17 06:00 BUN 15 mg/dL (7-18) 11/18/17 06:00 Creatinine 1.0 mg/dL (0.7-1.3) 11/18/17 06:00 Creat Clearance w eGFR > 60 (>60) 11/18/17 06:00 Random Glucose 106 mg/dL (74-106) D 11/18/17 06:00 Calcium 8.2 mg/dL (8.5-10.1) L 11/18/17 06:00 Total Bilirubin 1.5 mg/dL (0.2-1.0) H D 11/18/17 06:00 AST 11 U/L (15-37) L D 11/18/17 06:00 ALT 14 U/L (12-78) D 11/18/17 06:00 Alkaline Phosphatase 81 U/L (45-117) 11/18/17 06:00 Total Protein 7.0 g/dl (6.4-8.2) 11/18/17 06:00 Albumin 3.9 g/dl (3.4-5.0) 11/18/17 06:00 Urine Color Dkyellow 11/17/17 14:00 Urine Appearance Clear 11/17/17 14:00 Urine pH 6.0 (5.0-8.0) 11/17/17 14:00 Ur Specific [place] 1.025 (1.001-1.035) 11/17/17 14:00 Urine Protein Negative (NEGATIVE) 11/17/17 14:00 Urine Glucose (UA) Negative (NEGATIVE) 11/17/17 14:00 Urine Ketones Negative (NEGATIVE) 11/17/17 14:00 Urine Blood Negative (NEGATIVE) 11/17/17 14:00 Urine Nitrite Negative (NEGATIVE) 11/17/17 14:00 Urine Bilirubin Negative (NEGATIVE) 11/17/17 14:00 Urine Urobilinogen 2.0 mg/dL (0.2-1.0) 11/17/17 14:00 Ur Leukocyte Esterase Trace (NEGATIVE) 11/17/17 14:00 Urine WBC (Auto) 20 /hpf (3-5) 11/17/17 14:00 Urine RBC (Auto) 3 /hpf (0-3) 11/17/17 14:00 Urine Mucus Rare 11/17/17 14:00 RPR Titer Nonreactive (NONREACTIVE) 11/18/17 06:00 REPEAT UA RESULT PENDING - Treatment Hospital Course: Discharged Condition Good - Medication Discharge Medications: Ambulatory Orders NK [No Known Home Medication] 02/20/17 - Diagnosis (1) Alcohol dependence with uncomplicated withdrawal Status: Acute (2) Cocaine dependence, uncomplicated Status: Acute (3) Nicotine dependence Status: Acute Qualifiers: Nicotine product type: cigarettes Substance use status: in withdrawal Qualified Code(s): F17.213 - Nicotine dependence, cigarettes, with withdrawal (4) Weight loss Status: Acute - AMA Did Patient Leave Against Medical Advice: Yes (AMA)
[2017-11-19] MEDS ORDERED: chlordiazePOXIDE 5 MG CAPSULE PO SCH (17:00)
[2017-11-19 17:14] LABS: URINE APPEARANCE CLEAR; URINE BILIRUBIN NEGATIVE (NEGATIVE); URINE BLOOD NEGATIVE (NEGATIVE); URINE COLOR STRAW; URINE GLUCOSE (UA) NEGATIVE (NEGATIVE); URINE KETONE NEGATIVE (NEGATIVE); URINE LEUK ESTERASE NEGATIVE (NEGATIVE); URINE NITRITE NEGATIVE (NEGATIVE); URINE PROTEIN NEGATIVE (NEGATIVE); URINE UROBILINOGEN NEGATIVE mg/dL (0.2-1.0)
[2017-11-20] MEDS ORDERED: chlordiazePOXIDE HCL 10 MG CAPSULE PO SCH (17:00)
== END 2017-11-19 13:51 | disposition left against medical advice (07) | DRG 770 ==
LOC: YASAS 09:25 → Y3N 12:56
PROVIDERS: ADMIT Internal Medicine; ATTEND Internal Medicine
PROC: HZ2ZZZZ Detoxification Services for Substance Abuse Treatment (ICD-10-PCS; principal; 2017-11-17)
DX: F10.230 Alcohol dependence with withdrawal, uncomplicated (principal); F14.20 Cocaine dependence, uncomplicated; F17.213 Nicotine dependence, cigarettes, with withdrawal; F51.05 Insomnia due to other mental disorder; B18.2 Chronic viral hepatitis C; Z88.0 Allergy status to penicillin; Z87.898 Personal history of other specified conditions; Z59.0 Homelessness
CPT/HCPCS: 36415; 80053; 81003; 81015; 85027; 86593; 93005; 93010

== ENCOUNTER 2018-11-21 09:20 | Inpatient (IN) | payer OTHER ==
[2018-11-21 10:09] VITALS: BMI 21.2
--- NOTE | 2018-11-21 12:54 | HP ---
CIWA Score Nausea/Vomitin-No Nausea/No Vomiting Muscle Tremors: 2 Anxiety: 2 Agitation: 1-Slight > Activity Paroxysmal Sweats: 1-Minimal Palms Moist Orientation: 1-Uncertain about Date Tacttile Disturbances: 1-Very Mild Itch/Numbness Auditory Disturbances: 1-Very Mild Visual Disturbances: 2-Mild Sensitivity Headache: 2-Mild CIWA-Ar Total Score: 13 - Admission Criteria [facility]ASAS Guidelines: Admission for Medically Managed Detox: Requires at least one of the followin. CIWA greater than 12 2. Seizures within the past 24 hours 3. Delirium tremens within the past 24 hours 4. Hallucinations within the past 24 hours 5. Acute intervention needed for co occurring medical disorder 6. Acute intervention needed for co occurring psychiatric disorder 7. Severe withdrawal that cannot be handled at a lower level of care (continued vomiting, continued diarrhea, abnormal vital signs) requiring intravenous medication and/or fluids 8. Patient presents the following: CIWA greater than 12 Admission Criteria Met: Admission criteria met Ad[facility] Chief Complaint: " I need help for alcohol " Allergies/Adverse Reactions: Allergies Allergy/AdvReac Type Severity Reaction Status Date / Time Penicillins Allergy Difficulty Verified 11/21/18 12:21 Breathing History of Present Illness: 53 yo male with hx of nicotine, alcohol, cocaine is here seeking alcohol detox. Last detox [facility] November 2017 left AMA. PMHX: Hep C treated , depression, insomnia and anxiety. Reports EOTH blackouts x2 with episode four days ago. Reports he fell four days ago while intoxicated and was evaluated at [facility]. Denies suicidal / homicidal ideation. Exam Limitations: No Limitations - Ebola screening Have you traveled outside of the country in the last 21 days: No (N) Have you had contact with anyone from an Ebola affected area: No Have you been sick,other than usual withdrawal symptoms: No Do you have a fever: No - Review of Systems Constitutional: Loss of Appetite, Changes in sleep, Unintentional Wgt. Loss (14 lbs past 2.5 months), Other (fatigue) EENT: reports: No Symptoms Reported Respiratory: reports: No Symptoms reported Cardiac: reports: Lightheadedness GI: reports: Constipated (last BM three days ago), Poor Appetite, Poor Fluid Intake, Abdominal cramping : reports: No Symptoms Reported Musculoskeletal: reports: Back Pain, Joint Pain, Other (b/y shoulder pain xhronic) Integumentary: reports: Dryness Neuro: reports: Headache, Tingling (right ankle) Endocrine: reports: Increased Thirst Hematology: reports: No Symptoms Reported Psychiatric: reports: Orientated x3, Anxious Other Systems: Reviewed and Negative Patient History - Patient Medical History Hx Anemia: No Hx Asthma: No Hx Chronic Obstructive Pulmonary Disease (COPD): No Hx Cancer: No Hx Cardiac Disorders: No Hx Congestive Heart Failure: No Hx Hypertension: No Hx Hypercholesterolemia: No Hx Seizures: No Hx Diabetes: No Hx Gastrointestinal Disorders: No Hx Liver Disease: Yes Hx Genitourinary Disorders: No Hx Sexually Transmitted Disorders: No Hx Renal Disease (ESRD): No Hx Thyroid Disease: No Hx Human Immunodeficiency Virus (HIV): No Hx Hepatitis C: Yes (TREATED) Hx Depression: Yes (INSOMNIA,ANXIETY) Hx Suicide Attempt: No Hx Bipolar Disorder: No Hx Schizophrenia: No - Patient Surgical History Past Surgical History: Yes Hx Neurologic Surgery: No Hx Cataract Extraction: No Hx Cardiac Surgery: No Hx Lung Surgery: No Hx Breast Surgery: No Hx Breast Biopsy: No Hx Abdominal Surgery: No Hx Appendectomy: No Hx Cholecystectomy: No Hx Genitourinary Surgery: No Hx Section: No Hx Orthopedic Surgery: Yes (Fractured & surgery on right hand IN 2016) Anesthesia Reaction: No - PPD History Documented Results: Negative w/proof Date: 02/22/17 Results: 0 mm - Reproductive History Patient : No - Smoking Cessation Smoking history: Current every day smoker Have you smoked in the past 12 months: Yes Aproximately how many cigarettes per day: 20 Cigars Per Day: 0 Hx Chewing Tobacco Use: No Initiated information on smoking cessation: Yes 'Breaking Loose' booklet given: 11/21/18 - Substance & Tx. History Hx Alcohol Use: Yes Hx Substance Use: Yes Substance Use Type: Alcohol, Cocaine Hx Substance Use Treatment: Yes (Last detox [facility] November 2017 left AMA. ) - Substances Abused Alcohol Route: Oral Frequency: Daily Amount used: 4 pt. Vodka, 2 six packs beer ( 12 oz cans) Age of first use: 7 Date of Last Use: 11/21/18 Cocaine Route: Inhalation Frequency: Daily Amount used: 12 bags Age of first use: 36 Date of Last Use: 11/21/18 Family Disease History - Family Disease History Family Disease History: Diabetes: Mother (Alcoholic,), Heart Disease: Grandparent (HTN,CVA), Other: Grandparent, Mother Ad[facility] - Vital Signs Vital Signs: Vital Signs - 24 hr 11/21/18 10:08 Temperature 98.2 F Pulse Rate 66 Respiratory 17 Rate Blood Pressure 118/61 - Physical General Appearance: Yes: Appropriately Dressed, Thin, Anxious HEENTM: Yes: EOMI, Hearing grossly Normal, Normal ENT Inspection, Normocephalic , Normal Voice, KENDRA, Pharynx Normal, Tm's normal Respiratory: Yes: Chest Non-Tender, Lungs Clear, Normal Breath Sounds, No Respiratory Distress, No Accessory Muscle Use Neck: Yes: Within Normal Limits Breast: Yes: Breast Exam Deferred Cardiology: Yes: Regular Rhythm, Regular Rate Abdominal: Yes: Normal Bowel Sounds, Non Tender, Flat, Soft Genitourinary: Yes: Within Normal Limits Back: Yes: Normal Inspection Musculoskeletal: Yes: full range of Motion, Gait Steady, Pelvis Stable Extremities: Yes: Normal Capillary Refill, Normal Inspection, Normal Range of Motion Neurological: Yes: life skills worker II-XII NML intact, Fully Oriented, Motor Strength 5/5 Integumentary: Yes: Normal Color, Warm, Diaphoresis Lymphatic: Yes: Within Normal Limits - Diagnostic (1) Alcohol dependence with uncomplicated withdrawal Current Visit: Yes Status: Acute (2) Cocaine dependence, uncomplicated Current Visit: Yes Status: Acute (3) Nicotine dependence Current Visit: Yes Status: Acute Qualifiers: Nicotine product type: cigarettes Substance use status: in withdrawal Qualified Code(s): F17.213 - Nicotine dependence, cigarettes, with withdrawal (4) Weight loss Current Visit: Yes Status: Acute Cleared for Admission [facility] - [facility]ox [facility]hab [facility] Level of Care: Medically Managed Detox Regimen/Protocol: [facility] Breath Alcohol Content Breath Alcohol Content: 0 Urine Drug Screen - Results Drug Screen Negative: No Urine Drug Screen Results: [facility] Admission - Rehab Decision to Admit Inpatient rehab admission?: No
[2018-11-21] MEDS ORDERED: NICOTINE POLACRILEX 2 MG GUM BUC PRN (13:02)
[2018-11-21] MEDS ORDERED: hydrOXYzine PAMOATE 25 MG CAPSULE (FP) PO PRN (13:02)
[2018-11-21] MEDS ORDERED: MAGNESIUM CITRATE 300 ML BOTTLE PO PRN (13:02)
[2018-11-21] MEDS ORDERED: METHOCARBAMOL 500 MG TABLET PO PRN (13:02)
[2018-11-21] MEDS ORDERED: MAG HYDROX/AL HYDROX/SIMETH 30 ML UNIT-DOSE CUP PO PRN (13:02)
[2018-11-21] MEDS ORDERED: MELATONIN 5 MG TABLETS PO PRN (13:02)
[2018-11-21] MEDS ORDERED: IBUPROFEN 400 MG TABLET (FP) PO PRN ×2 (13:02)
[2018-11-21] MEDS ORDERED: MAGNESIUM HYDROX 2400MG/30ML ORAL SUSPENSION 30 ML CUP PO PRN (13:02)
[2018-11-21] MEDS ORDERED: BISMUTH SUBSALICYLATE 524 MG/30 ML UD PO PRN (13:02)
[2018-11-21] MEDS ORDERED: MENTHOL/PHENOL 1 EACH UD MM PRN (13:02)
[2018-11-21] MEDS ORDERED: ACETAMINOPHEN 325 MG TABLET (FP) PO PRN (13:02)
[2018-11-21] MEDS ORDERED: chlordiazePOXIDE HCL 25 MG CAPSULE PO PRN (13:02)
[2018-11-21] MEDS: chlordiazePOXIDE HCL 25 MG CAPSULE PO SCH ×2 (17:35→22:11)
[2018-11-21] MEDS ORDERED: THIAMINE HCL 100 MG TABLET (FP) PO SCH (22:00)
[2018-11-22] MEDS: chlordiazePOXIDE HCL 25 MG CAPSULE PO SCH (05:28)
[2018-11-22] MEDS ORDERED: PNEUMOC 13-VAL CONJ-DIP CRM/PF 0.5 ML DISP.SYRIN IM ONE (09:00)
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
[2018-11-22 09:53] VITALS: BP 104/68; PULSE 59; TEMP 97.8
[2018-11-22] MEDS ORDERED: PRENATAL VITAMINS W/ FOLIC ACID TABLET (FP) PO SCH (10:00)
[2018-11-22] MEDS ORDERED: NICOTINE 14 MG/24 HOURS TOPICAL PATCH TD SCH (10:00)
[2018-11-22 10:11] LABS: HEMATOCRIT 39.2 % (35.4-49); MCH 30.2 pg (25.7-33.7); MCHC 33.1 g/dl (32.0-35.9); MEAN CELL VOLUME 91.3 fl (80-96); MEAN PLT VOLUME 9.7 fl (7.5-11.1); PLATELET COUNT 198 K/MM3 (134-434); RBC 4.29 M/mm3 (4.00-5.60); RDW 14.2 % (11.9-15.9); WHITE BLOOD COUNT 9.4 K/mm3 (4.0-10.0)
[2018-11-22 10:52] LABS: ALBUMIN 3.2 g/dl (3.4-5.0); ALK PHOS 83 U/L (45-117); ANION GAP 7 MMOL/L (8-16); BILIRUBIN,TOTAL 0.7 mg/dL (0.2-1); BLOOD UREA NITROGEN 13 mg/dL (7-18); CHLORIDE 105 mmol/L (98-107); CO2 29 mmol/L (21-32); CREATININE 0.8 mg/dL (0.55-1.3); GLUCOSE,RANDOM 109 mg/dL (74-106); POTASSIUM 3.9 mmol/L (3.5-5.1); SGOT/AST 4 U/L (15-37); SGPT/ALT 9 U/L (13-61); SODIUM 142 mmol/L (136-145); TOT PROT 6.5 g/dl (6.4-8.2)
[2018-11-22] MEDS ORDERED: FLU VACCINE QUAD 60 MCG/0.5 ML (MDV 18-19) IM ONE (12:00)
[2018-11-22] MEDS ORDERED: PNEUMOCOCCAL 23 VACCINE 0.5 ML VIAL IM ONE (12:00)
[2018-11-22] MEDS ORDERED: chlordiazePOXIDE HCL 25 MG CAPSULE PO SCH (17:00)
[2018-11-23] MEDS ORDERED: chlordiazePOXIDE HCL 10 MG CAPSULE PO SCH (17:00)
[2018-11-23] MEDS ORDERED: chlordiazePOXIDE HCL 10 MG CAPSULE PO PRN (17:00)
[2018-11-24] MEDS ORDERED: chlordiazePOXIDE HCL 10 MG CAPSULE PO SCH (17:00)
== END 2018-11-22 10:04 | disposition left against medical advice (07) | DRG 774 ==
LOC: YASAS 09:20 → Y3N 12:31
PROVIDERS: ADMIT Surgery; ATTEND Surgery
PROC: HZ2ZZZZ Detoxification Services for Substance Abuse Treatment (ICD-10-PCS; principal; 2018-11-21)
DX: F10.230 Alcohol dependence with withdrawal, uncomplicated (principal); F14.20 Cocaine dependence, uncomplicated; F17.210 Nicotine dependence, cigarettes, uncomplicated; F91.8 Other conduct disorders; S60.414A Abrasion of right ring finger, initial encounter; Y04.0XXA Assault by unarmed brawl or fight, initial encounter; Y93.89 Activity, other specified; Y92.238 Other place in hospital as the place of occurrence of the external cause; R63.4 Abnormal weight loss; Z68.21 Body mass index [BMI] 21.0-21.9, adult; Z88.0 Allergy status to penicillin; Z59.0 Homelessness
CPT/HCPCS: 36415; 80053; 85027; 86593; 87389

== ENCOUNTER 2019-07-07 14:17 | Inpatient (IN) | payer OTHER ==
[2019-07-07 14:52] VITALS: BMI 22.6
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
[2019-07-07] MEDS ORDERED: hydrOXYzine PAMOATE 25 MG CAPSULE (FP) PO PRN (16:17)
[2019-07-07] MEDS ORDERED: ACETAMINOPHEN 325 MG TABLET (FP) PO PRN ×2 (16:17)
[2019-07-07] MEDS ORDERED: MAG HYDROX/AL HYDROX/SIMETH 30 ML UNIT-DOSE CUP PO PRN (16:17)
[2019-07-07] MEDS ORDERED: MAGNESIUM CITRATE 300 ML BOTTLE PO PRN (16:17)
[2019-07-07] MEDS ORDERED: IBUPROFEN 400 MG TABLET (FP) PO PRN (16:17)
[2019-07-07] MEDS ORDERED: MENTHOL/PHENOL 1 EACH UD MM PRN (16:17)
[2019-07-07] MEDS ORDERED: MELATONIN 5 MG TABLETS PO PRN (16:17)
[2019-07-07] MEDS ORDERED: BISMUTH SUBSALICYLATE 524 MG/30 ML UD PO PRN (16:17)
[2019-07-07] MEDS ORDERED: METHOCARBAMOL 500 MG TABLET PO PRN (16:17)
[2019-07-07] MEDS ORDERED: chlordiazePOXIDE HCL 10 MG CAPSULE PO PRN (16:17)
[2019-07-07] MEDS ORDERED: MAGNESIUM HYDROX 2400MG/30ML ORAL SUSPENSION 30 ML CUP PO PRN (16:17)
--- NOTE | 2019-07-07 16:31 | PN ---
Teaching Attending Note Name of Resident: Agustin Streeter ATTENDING PHYSICIAN STATEMENT I saw and evaluated the patient. I reviewed the resident's note and discussed the case with the resident. I agree with the resident's findings and plan as documented. SUBJECTIVE: 53 year old male here for alcohol detox , reports 3 pints vodka/gin/barcardi, 3 x 24 oz cans of beer., reports tremors if not drinking alcohol, , Reports that he had a seizure last month . Benzo use: last used yesterday (2 pills), uses every other day. K2: 1-2 sticks every day, last used today Marijuana: 1-2 every day, last smoked today Heroin: last used 2 days ago (uses 5-6 bags daily), via inhalati on daily, ivdu in the past, ; no withdrawal symptoms Cocaine: last use 3-4 days ago, via inhalation Cigarettes: 1 pack per day since 13 years old OBJECTIVE: wnwd Vital Signs - 24 hr 07/07/19 14:44 Temperature 98.1 F Pulse Rate 55 L Respiratory 18 Rate Blood Pressure 128/76 ASSESSMENT AND PLAN: alcohol dependence - Librium detox
[2019-07-07] MEDS ORDERED: BACITRACIN 0.9 GM PACKET TP ONE (19:11)
[2019-07-07] MEDS: THIAMINE HCL 100 MG TABLET (FP) PO SCH (21:34)
[2019-07-07] MEDS: chlordiazePOXIDE HCL 25 MG CAPSULE PO SCH (21:34)
[2019-07-08] MEDS: chlordiazePOXIDE HCL 25 MG CAPSULE PO SCH ×3 (05:33→22:01)
[2019-07-08] MEDS: PRENATAL VITAMINS W/ FOLIC ACID TABLET (FP) PO SCH (10:06)
[2019-07-08 10:35] LABS: HEMATOCRIT 41.4 % (35.4-49); HEMOGLOBIN 13.4 GM/dL (11.7-16.9); MCHC 32.4 g/dl (32.0-35.9); MEAN CELL VOLUME 89.7 fl (80-96); MEAN PLT VOLUME 10.2 fl (7.5-11.1); PLATELET COUNT 180 K/MM3 (134-434); RBC 4.62 M/mm3 (4.00-5.60); RDW 13.1 % (11.9-15.9); WHITE BLOOD COUNT 7.7 K/mm3 (4.0-10.0)
[2019-07-08 10:53] LABS: ALBUMIN 3.7 g/dl (3.4-5.0); BILIRUBIN,TOTAL 2.1 mg/dL (0.2-1); BLOOD UREA NITROGEN 10.4 mg/dL (7-18); CALCIUM 8.3 mg/dL (8.5-10.1); CREATININE 0.7 mg/dL (0.55-1.3); POTASSIUM 3.7 mmol/L (3.5-5.1); TOT PROT 6.6 g/dl (6.4-8.2)
[2019-07-08] MEDS ORDERED: BENZOCAINE 28 GM HEMORRHOIDAL OINTMENT PR PRN (14:21)
[2019-07-08] MEDS ORDERED: WITCH HAZEL 50% (TUCKS) 40 PAD/JAR PAD TP PRN (14:21)
--- NOTE | 2019-07-08 14:51 | PN ---
S CIWA - CIWA Score Nausea/Vomitin (Stomach Cramping.) Muscle Tremors: None Anxiety: 3 Agitation: 2 Paroxysmal Sweats: No Perspiration Orientation: 0-Oriented Tacttile Disturbances: 0-None Auditory Disturbances: 1-Very Mild Visual Disturbances: 1-Very Mild Sensitivity Headache: 3-Moderate CIWA-Ar Total Score: 13 BHS Progress Note (SOAP) Subjective: H/A, Constipation, Stomach Cramping, Anxious. Objective: PATIENT A & O X 3, OBSERVED AMBULATING ON DETOX UNIT UNASSISTED. IN NO ACUTE DISTRESS. 07/08/19 14:51 Vital Signs Temperature 97.9 F 07/08/19 09:05 Pulse Rate 83 07/08/19 09:05 Respiratory Rate 18 07/08/19 09:05 Blood Pressure 124/74 07/08/19 09:05 O2 Sat by Pulse Oximetry (%) Laboratory Tests 07/08/19 07/08/19 07/08/19 07:20 07:20 07:20 WBC 7.7 RBC 4.62 Hgb 13.4 Hct 41.4 MCV 89.7 MCH 29.0 MCHC 32.4 RDW 13.1 Plt Count 180 MPV 10.2 Sodium 139 Potassium 3.7 Chloride 104 Carbon Dioxide 28 Anion Gap 7 L BUN 10.4 Creatinine 0.7 Est GFR (CKD-EPI)AfAm 123.13 Est GFR (CKD-EPI)NonAf 106.24 Random Glucose 107 H Calcium 8.3 L Total Bilirubin 2.1 H AST 18 ALT 20 Alkaline Phosphatase 82 Total Protein 6.6 Albumin 3.7 RPR Titer Nonreactive LABS NOTED. PATIENT HAS HAD ELEVATED TOTAL BILIRUBIN LEVELS ON PREVIOUS ADMISSIONS. 07/08/19 14:53 Assessment: 07/08/19 14:53 WITHDRAWAL SYMPTOMS. HYPERBILIRUBINEMIA. Plan: CONTINUE DETOX. INCREASE DAILY PO WATER INTAKE. COLACE PO FOR RELIEF OF CONSTIPATION.
[2019-07-08] MEDS: THIAMINE HCL 100 MG TABLET (FP) PO SCH (22:01)
[2019-07-08] MEDS: DOCUSATE SODIUM 100 MG CAPSULE (FP) PO SCH (22:01)
[2019-07-09] MEDS: chlordiazePOXIDE HCL 10 MG CAPSULE PO SCH ×3 (05:43→22:06)
[2019-07-09] MEDS: DOCUSATE SODIUM 100 MG CAPSULE (FP) PO SCH ×2 (10:30→22:05)
[2019-07-09] MEDS: PRENATAL VITAMINS W/ FOLIC ACID TABLET (FP) PO SCH (10:30)
[2019-07-09] MEDS: SENNOSIDES 8.6MG TABLET (FP) PO SCH ×2 (15:02→22:09)
--- NOTE | 2019-07-09 15:21 | PN ---
S CIWA - CIWA Score Nausea/Vomitin-No Nausea/No Vomiting Muscle Tremors: None Anxiety: 3 Agitation: 1-Slight > Activity Paroxysmal Sweats: No Perspiration Orientation: 0-Oriented Tacttile Disturbances: 1-Very Mild Itch/Numbness Auditory Disturbances: 0-None Visual Disturbances: 1-Very Mild Sensitivity Headache: 0-None Present CIWA-Ar Total Score: 6 BHS Progress Note (SOAP) Subjective: Constipation (Patient reports poor effect from Colace alone thus far, will add Senna PO BID). Objective: PATIENT A & O X 3, OBSERVED AMBULATING ON DETOX UNIT UNASSISTED. IN NO ACUTE DISTRESS. 07/09/19 15:18 Vital Signs Temperature 97.0 F L 07/09/19 09:52 Pulse Rate 71 07/09/19 09:52 Respiratory Rate 18 07/09/19 09:52 Blood Pressure 134/74 07/09/19 09:52 O2 Sat by Pulse Oximetry (%) Laboratory Tests 07/08/19 07/08/19 07/08/19 07:20 07:20 07:20 WBC 7.7 RBC 4.62 Hgb 13.4 Hct 41.4 MCV 89.7 MCH 29.0 MCHC 32.4 RDW 13.1 Plt Count 180 MPV 10.2 Sodium 139 Potassium 3.7 Chloride 104 Carbon Dioxide 28 Anion Gap 7 L BUN 10.4 Creatinine 0.7 Est GFR (CKD-EPI)AfAm 123.13 Est GFR (CKD-EPI)NonAf 106.24 Random Glucose 107 H Calcium 8.3 L Total Bilirubin 2.1 H AST 18 ALT 20 Alkaline Phosphatase 82 Total Protein 6.6 Albumin 3.7 RPR Titer Nonreactive LABS NOTED. Assessment: 07/09/19 15:18 WITHDRAWAL SYMPTOMS. HYPERBILIRUBINEMIA. Plan: CONTINUE DETOX. INCREASE DAILY PO WATER INTAKE. SENNA PO BID (ADDED TO COLACE) FOR RELIEF OF CONSTIPATION. PATIENT SCHEDULED FOR D/C FROM DETOX UNIT TOMORROW.
[2019-07-09] MEDS: THIAMINE HCL 100 MG TABLET (FP) PO SCH (22:05)
[2019-07-10] MEDS ORDERED: chlordiazePOXIDE HCL 10 MG CAPSULE PO ONE (05:00)
[2019-07-10 09:15] VITALS: BP 128/76; PULSE 59; TEMP 97.7
[2019-07-10] MEDS: PRENATAL VITAMINS W/ FOLIC ACID TABLET (FP) PO SCH (11:08)
[2019-07-10] MEDS: SENNOSIDES 8.6MG TABLET (FP) PO SCH (11:08)
[2019-07-10] MEDS: DOCUSATE SODIUM 100 MG CAPSULE (FP) PO SCH (11:08)
--- NOTE | 2019-07-10 13:21 | DS ---
[facility] Detox Discharge Summary Admission Date: 07/07/19 Discharge Date: 07/10/19 - History Present History: Alcohol Dependence Additional Comments: 53 years old male admitted on 07/07/19 for alcohol withdrawal sx management discuss aftercare to [facility] patient is alert oriented x 3 respiratory clear lung bilaterally on auscultation skin warm and dry abdomen soft no rebound tenderness - Physical Exam Results Vital Signs: Vital Signs Temperature 97.7 F 07/10/19 09:15 Pulse Rate 59 L 07/10/19 09:15 Respiratory Rate 18 07/10/19 09:15 Blood Pressure 128/76 07/10/19 09:15 O2 Sat by Pulse Oximetry (%) Pertinent Admission Physical Exam Findings: alcohol withdrawal sx Laboratory Last Values WBC 7.7 K/mm3 (4.0-10.0) 07/08/19 07:20 RBC 4.62 M/mm3 (4.00-5.60) 07/08/19 07:20 Hgb 13.4 GM/dL (11.7-16.9) 07/08/19 07:20 Hct 41.4 % (35.4-49) 07/08/19 07:20 MCV 89.7 fl (80-96) 07/08/19 07:20 MCH 29.0 pg (25.7-33.7) 07/08/19 07:20 MCHC 32.4 g/dl (32.0-35.9) 07/08/19 07:20 RDW 13.1 % (11.9-15.9) 07/08/19 07:20 Plt Count 180 K/MM3 (134-434) 07/08/19 07:20 MPV 10.2 fl (7.5-11.1) 07/08/19 07:20 Sodium 139 mmol/L (136-145) 07/08/19 07:20 Potassium 3.7 mmol/L (3.5-5.1) 07/08/19 07:20 Chloride 104 mmol/L (98-107) 07/08/19 07:20 Carbon Dioxide 28 mmol/L (21-32) 07/08/19 07:20 Anion Gap 7 MMOL/L (8-16) L 07/08/19 07:20 BUN 10.4 mg/dL (7-18) 07/08/19 07:20 Creatinine 0.7 mg/dL (0.55-1.3) 07/08/19 07:20 Est GFR (CKD-EPI)AfAm 123.13 07/08/19 07:20 Est GFR (CKD-EPI)NonAf 106.24 07/08/19 07:20 Random Glucose 107 mg/dL (74-106) H 07/08/19 07:20 Calcium 8.3 mg/dL (8.5-10.1) L 07/08/19 07:20 Total Bilirubin 2.1 mg/dL (0.2-1) H 07/08/19 07:20 AST 18 U/L (15-37) 07/08/19 07:20 ALT 20 U/L (13-61) 07/08/19 07:20 Alkaline Phosphatase 82 U/L (45-117) 07/08/19 07:20 Total Protein 6.6 g/dl (6.4-8.2) 07/08/19 07:20 Albumin 3.7 g/dl (3.4-5.0) 07/08/19 07:20 RPR Titer Nonreactive (NONREACTIVE) 07/08/19 07:20 lab noted - Treatment Hospital Course: Detox Protocol Followed, Detoxed Safely, Responded well, Discharged Condition Good, Rehab Referral Accepted Patient has Accepted a Rehab Referral to: [facility] - Medication Discharge Medications: Ambulatory Orders NK [No Known Home Medication] 02/20/17 - Diagnosis (1) Alcohol dependence with uncomplicated withdrawal Status: Acute (2) Nicotine dependence Status: Acute Qualifiers: Nicotine product type: cigarettes Substance use status: in withdrawal Qualified Code(s): F17.213 - Nicotine dependence, cigarettes, with withdrawal (3) Weight loss Status: Acute - AMA Did Patient Leave Against Medical Advice: No CIWA Score - CIWA Score Nausea/Vomitin-No Nausea/No Vomiting Muscle Tremors: None Anxiety: 1-Mildly Anxious Agitation: 0-Normal Activity Paroxysmal Sweats: No Perspiration Orientation: 0-Oriented Tacttile Disturbances: 0-None Auditory Disturbances: 0-None Visual Disturbances: 0-None Headache: 0-None Present CIWA-Ar Total Score: 1
== END 2019-07-10 09:55 | disposition home or self-care (01) | DRG 774 ==
LOC: YASAS 14:17 → Y3N 16:57
PROVIDERS: ADMIT Allergy & Immunology; ATTEND Allergy & Immunology
PROC: HZ2ZZZZ Detoxification Services for Substance Abuse Treatment (ICD-10-PCS; principal; 2019-07-07)
DX: F10.230 Alcohol dependence with withdrawal, uncomplicated (principal); F14.20 Cocaine dependence, uncomplicated; F17.213 Nicotine dependence, cigarettes, with withdrawal; F41.8 Other specified anxiety disorders; F32.9 Major depressive disorder, single episode, unspecified; B18.2 Chronic viral hepatitis C; E80.6 Other disorders of bilirubin metabolism; G47.00 Insomnia, unspecified; R63.4 Abnormal weight loss; Z68.22 Body mass index [BMI] 22.0-22.9, adult; Z88.0 Allergy status to penicillin; Z59.0 Homelessness
CPT/HCPCS: 36415; 80053; 85027; 86593